=== PATIENT | female | born 1935 | race Caucasian/White ===

== ENCOUNTER 2016-10-24 07:53 | Day surgery (SDC) | payer MEDICARE ==
[~2016-10-24] VITALS: Ht 162.6 cm; Wt 61.0 kg
[~2016-10-24 07:53] MED LIST: HYDR12.58 PO; LOSA1TAB18 PO; SIMV40TA3 PO; VIT1TABL34 PO
[2016-10-24 08:54] VITALS: BP 103/68
[2016-10-24] MEDS ORDERED: SODIUM CHLORIDE 0.9% 1,000 ML IV SCH (08:57)
[2016-10-24] MEDS ORDERED: MIDAZOLAM 1 MG/ML, 5ML ONE (09:36)
[2016-10-24] MEDS ORDERED: FENTANYL PF 100 MCG/2ML ONE (09:37)
[2016-10-24] MEDS ORDERED: FLUMAZENIL 0.1 MG/1 ML, 5ML ONE (09:37)
[2016-10-24] MEDS ORDERED: NALOXONE 1 MG/ML, 2ML ONE (09:37)
== END 2016-10-24 11:40 | disposition home or self-care (01) ==
LOC: OUT 07:53
PROVIDERS: ATTEND Urology
DX: N28.89 Other specified disorders of kidney and ureter (principal); I10 Essential (primary) hypertension; M81.0 Age-related osteoporosis without current pathological fracture; D64.9 Anemia, unspecified; Z98.49 Cataract extraction status, unspecified eye; Z96.1 Presence of intraocular lens; Z80.0 Family history of malignant neoplasm of digestive organs; Z80.6 Family history of leukemia
CPT/HCPCS: 36415; 50200; 77012; 85610; 88305; J2250; J3010; J7030; 99156; 99157; J2310

== ENCOUNTER 2017-02-09 11:07 | Inpatient (IN) | payer MEDICARE ==
[~2017-02-09] VITALS: Ht 163.8 cm; Wt 61.8 kg
[~2017-02-09 11:07] MED LIST changes: +CEFAZOLIN 1,000 MG ONE; +EPHEDRINE 50 MG/ML, 1ML ONE; +GLYCOPYRROLATE 0.2MG/1ML ONE; +NEOSTIGMINE 1 MG/ML, 10ML ONE; +OMEP-110 PO; +PHENYLEPHRINE 10 MG/ML ONE; +PROPOFOL 10 MG/ML, 20ML ONE; +ROCURONIUM 10 MG/ML ONE
[2017-02-09] MEDS ORDERED: FENTANYL PF 250 MCG/5ML ONE (11:38)
[2017-02-09] MEDS ORDERED: MIDAZOLAM 1 MG/ML, 2ML ONE (11:38)
[2017-02-09] MEDS ORDERED: LACTATED RINGERS 1,000 ML IV SCH (11:54)
[2017-02-09 11:55] VITALS: BP 118/64
[2017-02-09] MEDS ORDERED: EPINEPHRINE 1 MG/ML, 1ML ONE (13:22)
[2017-02-09] MEDS ORDERED: BUPIVACAINE/PF 0.5% ONE (13:22)
[2017-02-09] MEDS ORDERED: THROMBIN 5,000 UNIT VIAL TP ONE (13:22)
[2017-02-09] MEDS ORDERED: FENTANYL PF 100 MCG/2ML IV PRN (14:00)
[2017-02-09] MEDS ORDERED: LABETALOL 5MG/ML, 20ML IV PRN (14:00)
[2017-02-09] MEDS ORDERED: ONDANSETRON 2MG/ML, 2ML IVPush PRN (14:00)
[2017-02-09] MEDS ORDERED: MEPERIDINE/PF 25MG/0.5ML IVPush PRN (14:00)
[2017-02-09] MEDS ORDERED: METOCLOPRAMIDE 5 MG/ML, 2ML IV PRN (14:00)
[2017-02-09] MEDS ORDERED: OXYcodone 5 MG/5 ML ORAL.SOL UDC PO PRN (14:00)
[2017-02-09] MEDS ORDERED: hydrALAzine 20 MG/ML, 1ML IV PRN (14:00)
[2017-02-09] MEDS ORDERED: PROMETHAZINE 25 MG/ML, 1ML IV PRN (14:00)
[2017-02-09] MEDS ORDERED: ACETAMINOPHEN 650 MG/20.3 ML UDC ONE (16:16)
[2017-02-09] MEDS ORDERED: OXYcodone 5 MG/5 ML ORAL.SOL UDC ONE (16:16)
[2017-02-09] MEDS ORDERED: HYDROmorphone 1 MG/ML, 1ML ONE (16:16)
[2017-02-09] MEDS: HYDROmorphone 1 MG/ML, 1ML IV PRN ×2 (16:19→16:29)
[2017-02-09] MEDS: ACETAMINOPHEN 325 MG TABLET PO PRN (16:20)
[2017-02-09] MEDS ORDERED: ONDANSETRON 2MG/ML, 2ML IV PRN (16:30)
[2017-02-09] MEDS ORDERED: HYDROmorphone 1 MG/ML, 1ML IV PRN (16:30)
[2017-02-09] MEDS ORDERED: ONDANSETRON 2MG/ML, 2ML ONE (16:53)
[2017-02-09] MEDS: POTASSIUM CHLORIDE 20 MEQ in D5%-0.9% NACL 1,000 ML IV SCH (17:33)
[2017-02-09 19:24] VITALS: BP 106/49
[2017-02-09] MEDS: SIMVASTATIN 40 MG TABLET PO SCH (20:30)
[2017-02-10] VITALS: BP 90/45
[2017-02-10] MEDS: POTASSIUM CHLORIDE 20 MEQ in D5%-0.9% NACL 1,000 ML IV SCH ×2 (02:42→15:20)
[2017-02-10 03:57] VITALS: BP 110/50
[2017-02-10] MEDS: HYDROcodone/APAP 5/325 TABLET PO PRN ×2 (04:12→19:52)
[2017-02-10 04:49] LABS: BLOOD UREA NITROGEN 25 mg/dL (7-18)
[2017-02-10] MEDS: OMEPRAZOLE 20 MG CAPSULE.DR PO SCH (07:30)
[2017-02-10 07:45] VITALS: BP 104/49
[2017-02-10] MEDS: HYDROCHLOROTHIAZIDE 12.5 MG CAPSULE PO SCH (09:00)
[2017-02-10] MEDS: LOSARTAN 50MG TABLET PO SCH (09:00)
[2017-02-10] MEDS ORDERED: ACETAMINOPHEN 325 MG TABLET PO PRN (12:00)
[2017-02-10 13:31] VITALS: BP 99/62
[2017-02-10 18:40] VITALS: BP 119/53
[2017-02-10] MEDS: SIMVASTATIN 40 MG TABLET PO SCH (19:52)
[2017-02-11] MEDS: HYDROcodone/APAP 5/325 TABLET PO PRN ×5 (01:28→22:35)
[2017-02-11] MEDS: POTASSIUM CHLORIDE 20 MEQ in D5%-0.9% NACL 1,000 ML IV SCH ×3 (02:14→23:42)
[2017-02-11 05:10] VITALS: BP 101/57
[2017-02-11 06:04] LABS: HEMATOCRIT 35.5 % (34.6-47.8); HEMOGLOBIN 11.6 g/dL (11.7-16.4); WHITE BLOOD COUNT 9.8 x10^3/uL (3.4-10)
[2017-02-11 06:15] LABS: BLOOD UREA NITROGEN 19 mg/dL (7-18)
[2017-02-11 07:20] VITALS: BP 106/69
[2017-02-11] MEDS: OMEPRAZOLE 20 MG CAPSULE.DR PO SCH (07:34)
[2017-02-11] MEDS: HYDROCHLOROTHIAZIDE 12.5 MG CAPSULE PO SCH (08:00)
[2017-02-11] MEDS: LOSARTAN 50MG TABLET PO SCH (08:05)
[2017-02-11 12:27] VITALS: BP 135/67
[2017-02-11 20:01] VITALS: BP 114/69
[2017-02-11] MEDS: SIMVASTATIN 40 MG TABLET PO SCH (22:34)
[2017-02-12 02:39] VITALS: BP 152/83
[2017-02-12] MEDS: HYDROcodone/APAP 5/325 TABLET PO PRN (02:51)
[2017-02-12 04:59] LABS: HEMATOCRIT 38.4 % (34.6-47.8); HEMOGLOBIN 12.5 g/dL (11.7-16.4); WHITE BLOOD COUNT 8.7 x10^3/uL (3.4-10)
[2017-02-12 05:11] LABS: BLOOD UREA NITROGEN 14 mg/dL (7-18)
[2017-02-12 07:48] VITALS: BP 130/67
[2017-02-12] MEDS: HYDROCHLOROTHIAZIDE 12.5 MG CAPSULE PO SCH (08:02)
[2017-02-12] MEDS: OMEPRAZOLE 20 MG CAPSULE.DR PO SCH (08:03)
[2017-02-12] MEDS: LOSARTAN 50MG TABLET PO SCH (08:03)
[2017-02-12] MEDS: POTASSIUM CHLORIDE 20 MEQ in D5%-0.9% NACL 1,000 ML IV SCH (08:03)
[2017-02-12 08:30] VITALS: BP 141/86
[2017-02-12 13:45] VITALS: BP 133/72
[2017-02-12] MEDS: SIMVASTATIN 40 MG TABLET PO SCH (20:11)
[2017-02-12] MEDS: ACETAMINOPHEN 325 MG TABLET PO PRN (20:11)
[2017-02-13 03:00] VITALS: BP 176/71
[2017-02-13 05:17] LABS: BLOOD UREA NITROGEN 19 mg/dL (7-18)
[2017-02-13] MEDS: OMEPRAZOLE 20 MG CAPSULE.DR PO SCH (07:10)
[2017-02-13] MEDS: ACETAMINOPHEN 325 MG TABLET PO PRN (07:11)
[2017-02-13 07:30] VITALS: BP 161/87
[2017-02-13] MEDS: POTASSIUM CHLORIDE 20 MEQ in D5%-0.9% NACL 1,000 ML IV SCH (07:30)
[2017-02-13] MEDS: HYDROCHLOROTHIAZIDE 12.5 MG CAPSULE PO SCH (09:07)
[2017-02-13] MEDS: LOSARTAN 50MG TABLET PO SCH (09:07)
[2017-02-13 13:23] VITALS: BP 132/61
== END 2017-02-13 14:10 | disposition home health service (06) | DRG 656 ==
LOC: ORIP 11:07 → 4NOR 17:16
PROVIDERS: ADMIT Urology; ATTEND Urology
PROC: 0TT04ZZ Resection of Right Kidney, Percutaneous Endoscopic Approach (ICD-10-PCS; principal; 2017-02-09 13:00)
DX: D30.01 Benign neoplasm of right kidney (principal); N17.0 Acute kidney failure with tubular necrosis; N28.89 Other specified disorders of kidney and ureter; D64.9 Anemia, unspecified; I10 Essential (primary) hypertension; K21.9 Gastro-esophageal reflux disease without esophagitis; M81.0 Age-related osteoporosis without current pathological fracture; Z80.0 Family history of malignant neoplasm of digestive organs; Z80.6 Family history of leukemia
CPT/HCPCS: 36415; 80048; 85018; 85025; 86850; 86900; 88307; J0171; J0690; J1170; J2250; J2405; J2704; J2710; J3010; J3480; J3490; J7042; C1760; J2370; J7120